=== PATIENT | female | born 1970 | race Caucasian/White ===

== ENCOUNTER → 2017-05-12 | Outpatient (CLI) | payer OTHER | LOC: FIMAGING 07:55 | PROVIDERS: ATTEND Obstetrics & Gynecology | DX: Z12.31 Encounter for screening mammogram for malignant neoplasm of breast (principal); Z80.3 Family history of malignant neoplasm of breast | CPT/HCPCS: G0202 ==

== ENCOUNTER 2017-11-06 08:11 | Inpatient (IN) | payer OTHER ==
[2017-11-06] MEDS ORDERED: NS 1,000 ML IV ONE (08:33)
--- NOTE | 2017-11-06 08:36 | EDPHY ---
H & P Stated Complaint: Left hand swelling Time Seen by Provider: 11/06/17 08:30 HPI/ROS: CHIEF COMPLAINT: Swelling and erythema dorsum left hand HISTORY OF PRESENT ILLNESS: The patient presents to the ED with swelling and erythema to the dorsum of her left hand. She was bit by her cat at home 2 days ago and began Augmentin immediately following the bite. She has been taking 875 mg twice daily. She presents to the ED today with increasing pain, swelling erythema to the dorsum of her left hand. The patient reports some mild paresthesias secondary to the swelling. She denies any additional arthralgias. She has mild to moderate pain worsened with movement. She denies any pain along the flexor surface of her hand. REVIEW OF SYSTEMS: A comprehensive 10 point review of systems is otherwise negative aside from elements mentioned in the history of present illness. Source: Patient Exam Limitations: No limitations - Personal History LMP (Females 10-55): 15-21 Days Ago Current Tetanus/Diphtheria Vaccine: Yes Current Tetanus Diphtheria and Acellular Pertussis (TDAP): Yes - Medical/Surgical History Hx Asthma: No Hx Chronic Respiratory Disease: No Hx Diabetes: No Hx Cardiac Disease: No Hx Renal Disease: No Hx Cirrhosis: No Hx Alcoholism: No Hx HIV/AIDS: No Hx Splenectomy or Spleen Trauma: No Other PMH: PMH: denies - Social History Smoking Status: Never smoked - Physical Exam Exam: General Appearance: Alert, no distress Eyes: Pupils equal and round no pallor or injection ENT, Mouth: Mucous membranes moist Respiratory: There are no retractions, lungs are clear to auscultation Cardiovascular: Regular rate and rhythm Gastrointestinal: Abdomen is soft and nontender, no masses, bowel sounds normal Neurological: 5/5 strength noted throughout the bilateral upper extremities, sensation intact to light touch Skin: Erythema soft tissue swelling noted along the dorsum of the left hand Musculoskeletal: Tenderness along the dorsal aspect of the left hand and wrist , no significant joint effusion appreciated Extremities: Patient does have nonpainful range of motion noted in the left fingers and wrist Constitutional: Initial Vital Signs Temperature (C) 36.6 C 11/06/17 08:17 Heart Rate 81 11/06/17 08:17 Respiratory Rate 18 11/06/17 08:17 Blood Pressure 115/60 11/06/17 08:17 O2 Sat (%) 100 11/06/17 08:17 O2 Delivery Mode Room Air Allergies/Adverse Reactions: No Known Allergies Allergy (Unverified 11/06/17 08:20) Home Medications: Medication Instructions Recorded Amoxicillin/Clavulanate Pot 875 mg PO BID 11/06/17 [Augmentin 875 MG TAB (*)] Multivitamins [Multivitamin (*)] 1 each PO DAILY 11/06/17 Medical Decision Making - Diagnostics Imaging Results: Imaging Impressions Extremity Ultrasound 11/06/17 08:38 Impression: Mild dorsal soft tissue swelling with fluid in the dorsal extensor tendon sheath, consistent with an inflammatory/infectious tenosynovitis. Contrast-enhanced MR imaging could be considered for additional assessment. Findings and suggestions were discussed with Christ Sutton MD at 9:23, on 11/06/2017. Procedures: Procedure: Splint placement. A ortho glass volar splint was applied to the left upper extremity by the tech. After application of the splint I returned and re-examined the patient. The splint was adequately immobilizing the joint and distal to the splint the patient's circulation and sensation was intact. ED Course/Re-evaluation: The patient presents to the ED with a cellulitis to the dorsum of her left hand. An ultrasound was obtained which demonstrates no drainable abscess. The patient does have some mild fluid around her extensor tendons. The patient had blood cultures x2 obtained. She received 1 g of IV Invanz. Consultation is made with Dr. Escobar, the on-call hand surgeon, who will evaluate the patient for progressive abscess or need for surgical drainage. I did curbside the Infectious Disease service at 10:00 a.m.. They will see the patient in consultation. I spoke with Dr. Fatuma French. The patient will be admitted to Hospital Medicine. The patient will be admitted by Dr. Jean Salinas. I re-evaluated the patient at 10:30 a.m.: She will be placed in a ortho glass splint. Differential Diagnosis: Differential diagnosis considered includes cellulitis, abscess, necrotizing fasciitis, flexor tenosynovitis - Data Points Laboratory Results: Laboratory Results 11/06/17 08:40 11/06/17 08:40 11/06/17 11/06/17 08:40 08:40 WBC 7.74 10^3/uL 10^3/uL (3.80-9.50) RBC 4.35 10^6/uL 10^6/uL (4.18-5.33) Hgb 12.4 g/dL L g/dL (12.6-16.3) Hct 38.0 % % (38.0-47.0) MCV 87.4 fL fL (81.5-99.8) MCH 28.5 pg pg (27.9-34.1) MCHC 32.6 g/dL g/dL (32.4-36.7) RDW 14.6 % % (11.5-15.2) Plt Count 214 10^3/uL 10^3/uL (150-400) MPV 10.2 fL fL (8.7-11.7) Neut % (Auto) 73.0 % % (39.3-74.2) Lymph % (Auto) 16.9 % % (15.0-45.0) Bledsoe % (Auto) 7.9 % % (4.5-13.0) Eos % (Auto) 0.9 % % (0.6-7.6) Baso % (Auto) 0.8 % % (0.3-1.7) Nucleat RBC Rel Count 0.0 % % (0.0-0.2) Absolute Neuts (auto) 5.65 10^3/uL 10^3/uL (1.70-6.50) Absolute Lymphs (auto) 1.31 10^3/uL 10^3/uL (1.00-3.00) Absolute Monos (auto) 0.61 10^3/uL 10^3/uL (0.30-0.80) Absolute Eos (auto) 0.07 10^3/uL 10^3/uL (0.03-0.40) Absolute Basos (auto) 0.06 10^3/uL 10^3/uL (0.02-0.10) Absolute Nucleated RBC 0.00 10^3/uL 10^3/uL (0-0.01) Immature Gran % 0.5 % % (0.0-1.1) Immature Gran # 0.04 10^3/uL 10^3/uL (0.00-0.10) ESR 9 MM/HR MM/HR (0-20) Sodium 142 mEq/L mEq/L (134-144) Potassium 3.9 mEq/L mEq/L (3.5-5.2) Chloride 105 mEq/L mEq/L (97-110) Carbon Dioxide 22 mEq/l mEq/l (22-31) Anion Gap 15 mEq/L mEq/L (8-16) BUN 13 mg/dL mg/dL (7-23) Creatinine 0.7 mg/dL mg/dL (0.6-1.0) Estimated GFR > 60 Glucose 65 mg/dL L mg/dL (70-100) Calcium 9.6 mg/dL mg/dL (8.5-10.4) C-Reactive Protein 37.3 mg/L H mg/L (<10.0) Medications Given: Discontinued Medications Ertapenem (Invanz) 1 gm IVP EDNOW ONE PRN Reason: Protocol Stop: 11/06/17 09:10 Last Admin: 11/06/17 09:23 Dose: 1 gm Sodium Chloride (Ns) 1,000 mls @ 0 mls/hr IV ONCE ONE; Wide Open PRN Reason: Protocol Stop: 11/06/17 08:34 Last Admin: 11/06/17 09:03 Dose: 1,000 mls Departure - Departure Disposition: [facility] Inpatient Acute Clinical Impression: Cellulitis of left hand Cat bite Qualifiers: Encounter type: initial encounter Qualified Code(s): W55.01XA - Bitten by cat, initial encounter Condition: Good Referrals: Diego Delacruz MD [Primary Care Provider] - As per Instructions
[2017-11-06 08:55] LABS: PLATELET COUNT 214 10^3/uL (150-400)
[2017-11-06] MEDS ORDERED: ERTAPENEM 1 GM VIAL IVP ONE (09:09)
[2017-11-06] MEDS ORDERED: ONDANSETRON 4 MG/2 ML VIAL IVP PRN (11:23)
[2017-11-06] MEDS ORDERED: oxyCODONE IR 5 MG TAB PO PRN (11:23)
[2017-11-06] MEDS ORDERED: ONDANSETRON DISINTEGRATING 4 MG TAB PO PRN (11:23)
[2017-11-06 11:48] VITALS: BP 110/59; PULSE 71; RESP 18; TEMP 98.4; O2SAT 99
--- NOTE | 2017-11-06 12:01 | GHP ---
[f rep st] HISTORY AND PHYSICAL DATE OF ADMISSION: 11/06/2017 HISTORY OF PRESENT ILLNESS: The patient is a 47-year-old female with good health and no significant past medical history, who was bitten by a cat 2 days ago at 10 a.m. At 7 p.m. that evening she start ed Augmentin and she had been doing well, but this morning she woke up with increased pain, redness, and swelling in the side of her hand and the dorsum of her wrist. She has had pain with extension of her fingers, not flexion. She has not noticed crepitus. She has not had nausea, vomiting, fever, c hills, cough, shortness of breath. She denies left armpit pain nor does she have lymphangitic streak ing up her arm. She does not use IV drugs. REVIEW OF SYSTEMS: Complete 10-point review of systems conducted and negative except as in the HPI. PAST MEDICAL HISTORY: None. ALLERGIES: None. HOME MEDICATIONS: Augmentin, Benadryl h.s., multivitamin, and ibuprofen. SOCIAL HISTORY: No tobacco. She has a couple glasses of wine most days. No IV drug use. FAMILY HISTORY: Notable for breast cancer or lymphoma. PHYSICAL EXAMINATION: VITAL SIGNS: Temp 36.6, blood pressure 118/60, pulse 81, breathing 18 times a minute, 100% in room air. GENERAL: No acute distress. HEENT: Sclerae anicteric. Oropharynx ching r. Mucous membranes moist. NECK: Supple without lymphadenopathy or JVD. LUNGS: Clear to ausculta tion bilaterally. HEART: S1, S2. ABDOMEN: Soft, nontender, nondistended. LOWER EXTREMITIES: Wit hout edema. Left upper extremity is bandaged. She has erythema and warmth and some soft-tissue swel ling over her carpal bones. She has some pain with extension in the area of the redness but not in h er upper arm. There is no axillary lymphadenopathy. LABORATORY DATA: Chem 7 normal other than a glucose of 65. Her CRP is high at 37.3. White count 7. 7, hematocrit 38, platelets are 214,000. Extremity ultrasound shows mild soft-tissue swelling within the fluid in the dorsal extensor tendon s марина, consistent with mild infectious tenosynovitis. I have discussed the case with Dr. Aniket Sutton. ASSESSMENT/PLAN: A 47-year-old female with a cat bite and extensor tenosynovitis. 1. Extensors tenosynovitis: She has a hand surgery evaluation pending. Dr. Escobar will see her and will follow up on that evaluation. 2. Cat bite: Has failed Augmentin. She has been started on ertapenem, and I will continue this. 3. Hyperglycemia: This is mild. By fasting sample, she is nondiabetic. 4. Pain: I have written for some scheduled Tylenol, p.r.n., oxycodone, as well as some ibuprofen. 5. Prophylaxis: Pharmacologic prophylaxis indicated if in the hospital longer than 24 hours, which she may well be. For now, I have started sequential compression devices. DISPOSITION: Inpatient status. /[id number]/MODL
[2017-11-06] MEDS ORDERED: ACETAMINOPHEN 325 MG TAB PO SCH (14:00)
[2017-11-06] MEDS ORDERED: ACETAMINOPHEN 500 MG TAB PO SCH (14:00)
[2017-11-06] MEDS ORDERED: IBUPROFEN 200 MG TAB PO SCH (14:00)
--- NOTE | 2017-11-06 15:27 | PDMN ---
Medical Necessity Medical necessity: Patient meets INPT criteria per physician note and [facility] Cellulitis (failed O/P treatment of cat bite: increasing pain/redness/swelling despite po Augmentin; likely extensor tenosynovitis; anticipated LOS > 2 midnights for ongoing IV antibiotics, pending hand surgery evaluation.)
--- NOTE | 2017-11-06 16:24 | ASMTCMCOM ---
CM Note CM Note Notes: Pt admitted for cellulitis and will DC today. She will need IV ertapenem 1GM through 11/10. Pt chose [facility]. She has a daily appt with them for 8:30. Gave pt check in info. Date Signed: 11/06/2017 04:24 PM Electronically Signed By:Marlene Maher LCSW
--- NOTE | 2017-11-06 16:37 | HOSPPROG ---
Hospitalist Progress Note Assessment/Plan: ID has set up outpt IV abx see dc summary Objective: Vital Signs Temp Pulse Resp BP Pulse Ox 36.9 C 71 18 110/59 L 99 11/06/17 11:48 11/06/17 11:48 11/06/17 11:48 11/06/17 11:48 11/06/17 11:48 ICD10 Worksheet Patient Problems: Problems Problem Status Onset Cat bite Acute Cellulitis of left hand Acute
--- NOTE | 2017-11-06 17:03 | ASDISCHSUM ---
Discharge Information Plan Status: Medically Cleared to Leave: Discharge Date:11/06/2017 04:40 PM CM D/C Disposition: ADT D/C Disposition:Home, Routine, Self-Care Projected Discharge Date:11/06/2017 04:40 PM Transportation at D/C: Discharge Delay Reason: Follow-Up Date:11/06/2017 04:40 PM Discharge Slot: Final Diagnosis: Placement Information Patient Contact Information Contact Name:JOHN Relationship: Address:[address] [place] [address] [address] Work Phone: City:[place] Alternate Phone: State/Zip Code:[place] [address] Email: Financial Information Financial Class:ABS Primary Plan Desc:[employer] Primary Plan Number:[id number] Secondary Plan Desc: Secondary Plan Number: Assessment Information [facility] CM Progress Note CM Note CM Note Notes: Pt admitted for cellulitis and will DC today. She will need IV ertapenem 1GM through 11/10. Pt chose [facility]. She has a daily appt with them for 8:30. Gave pt check in info. Date Signed: 11/06/2017 04:24 PM Electronically Signed By:Marlene Maher LCSW Intervention Information
[2017-11-06] MEDS ORDERED: diphenhydrAMINE 25 MG CAP PO SCH (21:00)
--- NOTE | 2017-11-06 22:08 | GCON ---
[f rep st] CONSULTATION DATE OF CONSULTATION: 11/06/2017 REASON FOR CONSULTATION: Management of a cat bite with associated cellulitis and tendinitis. HISTORY OF PRESENT ILLNESS: A 47-year-old woman who is healthy, who is right- hand dominant, who on 11/04/2017 at 10:00 a.m. sustained a cat bite from her own vaccinated cat. She immediately washed the area out with chlorhexidine and started on Augmentin that evening at 7:00 p.m. The patient had increasing pain and erythema on the dorsum of her left hand and presented to the emergency department for further evaluation. The patient denied any associated systemic symptoms such as fevers, chills, or night sweats. She denies a history of MRSA and the last time that she took antibiotics was about 15 years ago. PAST MEDICAL HISTORY/SURGICAL HISTORY: Only positive for section. SOCIAL HISTORY: Occasional alcohol. She is . No tobacco. 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 They have 1 cat and 1 dog. VACCINATIONS: She reports her Tdap was 5 years ago. ALLERGIES: NKDA. MEDICATIONS: No chronic medicines other than multivitamin. She was on Augmentin 875 twice daily on admission and was given a dose of ertapenem 1 g intravenously daily. REVIEW OF SYSTEMS: A complete 10-point review of systems was performed and is negative except as mentioned in HPI. PHYSICAL EXAMINATION: VITAL SIGNS: Blood pressure 110/58, heart rate 71, respiratory rate 18, saturation 99% on room air, temperature 36.9. GENERAL: This is a well-appearing woman, sitting up in bed in no acute distress. HEENT: Unremarkable neck was supple. CARDIOVASCULAR: Regular rate and rhythm. No murmur. CHEST: Clear to auscultation bilaterally. EXTREMITIES: Her left hand demonstrated erythema over the dorsum of her hand and adjacent beginning of her wrist with an obvious puncture wound at the back part of her hand. No purulence is expressed from that area. No fluctuance was noted. The patient tolerated very fairly aggressive palpation of this area with only moderate tenderness. The pain was not out of proportion to exam. The patient did have range of motion of her wrist intact, but had significant pain with flexion of the wrist. Her range of motion of her fingers were intact. There was no crepitus. There was associated warmth. No focal joint swelling. NEUROLOGIC: She was alert and oriented x4. PULSES: She had normal pulses including a left radial pulse intact. LABORATORY DATA: White count 7.7, hematocrit 38, platelets of 214, 73% neutrophils, 16% lymphocytes. ESR 9. CRP 37. Creatinine 0.7. Blood cultures were collected in the emergency department and are pending. IMAGING STUDIES: She had an ultrasound performed in the emergency department that showed mild dorsal soft tissue swelling with fluid in the dorsal tendon sheath consistent with inflammatory infectious tenosynovitis. ASSESSMENT AND PLAN: 47-year-old woman status post cat bite 2-1/2 days ago, who had progressive swelling and erythema and pain while on Augmentin. I still suspect primary pathogens to include pasteurella, streptococcus, and anaerobes. Pertinent pathogens are a combination from the oral romina of the cat, as well as the skin colonization. Suspect not a failure of spectrum of activity of Augmentin, but just needs higher antibiotic concentrations due to evidence of tenosynovitis and possible need for surgical intervention. Because the patient is hemodynamically stable with normal laboratories, the patient desires outpatient therapy/monitoring. Reviewed the potential reasons for hospitalization which include closer monitoring of exam, potential easier surgical intervention if needed if became progressive. The patient understands these risks, but still desires outpatient intravenous therapy. We will set up intravenous antibiotics through the infusion center; ertapenem once daily through the with reevaluation at that time. We will continue to follow blood cultures. Time 55 minutes with greater than 50% time spent with education and counseling regarding IV antibiotics potential need for surgical intervention and side effects relating to antibiotic therapy including the risk of Clostridium difficile. Education regarding the importance of elevation of the hand above the heart. Thank you for this consultation. We will arrange for followup as an outpatient. /[id number]/MODL MTDD
--- NOTE | 2017-11-07 04:49 | GDS ---
[f rep st] DISCHARGE SUMMARY DISCHARGE DIAGNOSES: Cat bite with infection and tenosynovitis. CONSULTATIONS: ID and Hand Surgery. HISTORY OF PRESENT ILLNESS: Patient was admitted with a cat bite. She immediately started taking Au gmentin, but progressed to infection with some pain with extension of her fingers. She had an ultras ound showing extensor tenosynovitis. She was noted to have pain in her upper arm. She was noted to have lymphadenitis. She was noted to have sepsis. She was seen by hand surgery who felt interventio n was not necessary. She was started on ertapenem, ID saw her and will establish outpatient antibiot ic care. She is discharged home. /[id number]/MODL
[2017-11-07] MEDS ORDERED: MULTIVITAMINS 1 EACH TAB PO SCH (09:00)
[2017-11-07] MEDS ORDERED: ERTAPENEM 1 GM VIAL IVP SCH (09:00)
--- NOTE | 2017-11-10 14:04 | PQFORM ---
PHYSICIAN QUERY FORM Needs Your Response This query form is being sent to you to assure this patient record is coded properly. Please respond to the question below: DIRECTOR OF ENGINEERING QUESTION: Dr. Salinas, On your discharge summary, you state 'she was noted to have sepsis'. There is no further documentation of the signs and symptoms of sepsis for this patient. Is it your clinical opinion that this patient had: Sepsis, present on admission Sepsis, not present on admission ___x___ Meant to say 'she was not noted to have sepsis' Other Thank you for clarifying, MARY Miller HIM Coding INSTRUCTIONS FOR RESPONSE: Answer question by clicking on the "Edit Document" button. Move cursor to area below the stars. When complete, hit "Save." Click on the "Sign" button, then click "Sign" again. Type in your PIN and hit "Enter." MTDD
== END 2017-11-06 16:40 | disposition home or self-care (01) | DRG 603 ==
LOC: F1N 11:31
PROVIDERS: ADMIT Internal Medicine; ATTEND Internal Medicine
DX: L03.114 Cellulitis of left upper limb (principal); M65.142 Other infective (teno)synovitis, left hand
CPT/HCPCS: 96374; J1335

== ENCOUNTER 2017-11-10 13:03 | Day surgery (SDC) | payer OTHER ==
[2017-11-10 13:36] VITALS: PULSE 59
[2017-11-10] MEDS ORDERED: LR 1,000 ML IV ONE (13:39)
--- NOTE | 2017-11-10 15:10 | GHP ---
[f rep st] PREOP HISTORY AND PHYSICAL DATE OF ADMISSION: 11/10/2017 CHIEF COMPLAINT: Infection, left dorsal wrist. 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 She did take Augmentin but failed to get a response to that. She was then admitted on the 06 of November for IV antibiotics and began to see some fairly rapid improvement. She was seen by me at that time and did not appear to be a surgical candidate. She continued taking IV ertapenem and an outpatient basis but after her initial improvement started to worsen in the past 12-24 hours. PAST MEDICAL HISTORY: Generally unremarkable. She is a healthy nonsmoker. She has had a section in the past. She had a kidney infection in 1998. MEDICATIONS: Ertapenem IV daily and multivitamins and supplements. PHYSICAL EXAMINATION: GENERAL: She is a pleasant, healthy-looking 47-year-old female. VITAL SIGNS: Afebrile. Vitals stable. CARDIOVASCULAR: Heart sounds normal. RESPIRATORY: She has good air entry. EXTREMITIES: Examination of the involved extremity shows swelling over the dorsum of the left wrist area with a small puncture wound still present. She has reasonably good movement of her fingers but limited wrist flexion and extension due to pain and swelling in the dorsum. There is no axial compression tenderness of the wrist joint. The swelling does appear to be all dorsally within the extensor tendon area. IMPRESSION: Dorsal hand infection, appears to be not completely responding to antibiotics. PLAN: Irrigation and drainage. /[id number]/MODL MTDD
[2017-11-10] MEDS ORDERED: BUPIVACAINE 0.5% 30 ML SDV ONE (15:14)
[2017-11-10] MEDS ORDERED: MIDAZOLAM 2 MG/2 ML VIAL ONE (15:27)
[2017-11-10] MEDS ORDERED: MIDAZOLAM 2 MG/2 ML VIAL IVP ONE (15:32)
--- NOTE | 2017-11-10 15:33 | PDANEPAE ---
ANE History of Present Illness I&D L hand s/p cat bite ANE Past Medical History - Pulmonary History Hx Oxygen in Use at Home: No Hx Sleep Apnea: Yes Sleep Apnea Screening Result - Last Documented: Negative - Endocrine History Hx Diabetes: No - Chronic Pain History Chronic Pain: No ANE Review of Systems Review of Systems: - Exercise capacity Exercise capacity: >=4 METS ANE Patient History - Allergies Allergies/Adverse Reactions: No Known Allergies Allergy (Unverified 11/06/17 08:20) - Home Medications Home medications: home medication list seen and reviewed Home Medications: Ibuprofen [Motrin (*)] 600 mg PO TID 11/06/17 [Last Taken 11/09/17 21:00] Multivitamins [Multivitamin (*)] 1 each PO DAILY 11/06/17 [Last Taken 11/10/17] diphenhydrAMINE [Benadryl 25 MG (*)] 25 mg PO HS 11/06/17 [Last Taken 11/09/17] - NPO status NPO Status: no food or drink >8 hours NPO Since - Liquids (Date): 11/10/17 NPO Since - Liquids (Time): 07:00 NPO Since - Solids (Date): 11/10/17 NPO Since - Solids (Time): 07:00 - Anes Hx Anes Hx: no prior problems - Smoking Hx Smoking Status: Never smoked - Alcohol Use Alcohol Use: Rarely ANE Labs/Vital Signs - Vital Signs Blood Pressure: 103/67 Heart Rate: 59 Respiratory Rate: 14 O2 Sat (%): 97 Height: 175.26 cm Weight: 71.214 kg ANE Physical Exam - Airway Mallampati Score: Class 1 Mouth exam: normal dental/mouth exam - Pulmonary Pulmonary: no respiratory distress - Cardiovascular Cardiovascular: regular rate and rhythym - ASA Status ASA Status: I ANE Anesthesia Plan Anesthesia Plan: GA w LMA
[2017-11-10] MEDS ORDERED: POLYMYXIN B SULFATE 500,000 UNIT/10 ML SYR IRR ONE (16:02)
[2017-11-10] MEDS ORDERED: BACITRACIN 50,000 UNITS/10 ML SYR IRR ONE (16:02)
[2017-11-10] MEDS ORDERED: DEXAMETHASONE 4 MG/ML VIAL IVP PRN (16:25)
[2017-11-10] MEDS ORDERED: ACETAMINOPHEN 500 MG TAB PO PRN (16:25)
[2017-11-10] MEDS ORDERED: MEPERIDINE 25 MG/ML SYR IVP PRN (16:25)
[2017-11-10] MEDS ORDERED: OXYCODONE/APAP 5/325 TAB PO PRN (16:25)
[2017-11-10] MEDS ORDERED: fentaNYL 100 MCG/2 ML INJ IVP PRN (16:25)
[2017-11-10] MEDS ORDERED: ALBUTEROL 3 ML DEYVIAL IH PRN (16:25)
[2017-11-10] MEDS ORDERED: PHENYLEPHRINE HCL 100 MCG/ML SYR IVP PRN (16:25)
[2017-11-10] MEDS ORDERED: METOCLOPRAMIDE 10 MG/2 ML VIAL IVP PRN (16:25)
[2017-11-10] MEDS ORDERED: NALOXONE HCL 0.4 MG/ML INJ IVP PRN (16:25)
[2017-11-10] MEDS ORDERED: LABETALOL HCL 5 MG/ML 20 ML MDV IVP PRN (16:25)
[2017-11-10] MEDS ORDERED: PROMETHAZINE HCL 25 MG/ML INJ IVP PRN (16:25)
[2017-11-10] MEDS ORDERED: ONDANSETRON 4 MG/2 ML VIAL IVP PRN (16:25)
[2017-11-10] MEDS ORDERED: HYDROCODONE/APAP 5/325 TAB PO PRN (16:25)
[2017-11-10] MEDS ORDERED: LR 500 ML IV PRN (16:25)
--- NOTE | 2017-11-10 16:58 | POSTOPPROG ---
Post Op Note Date of Operation: 11/10/17 Surgeon: Jean Escobar Anesthesiologist: Amish Tovar Anesthesia: LMA Pre-op Diagnosis: Infection Left Hand Post-op Diagnosis: Same Procedure: Debridement and Irrigation Left Dorsal Hand Infection Inf/Abcess present in the surg proc area at time of surgery?: Yes Depth: Deep Incisional (Fascial) EBL: Minimal
[2017-11-10] MEDS ORDERED: OXYCODONE/APAP 5/325 TAB ONE (17:04)
[2017-11-10 17:11] VITALS: TEMP 98.6
[2017-11-10 17:34] VITALS: RESP 16
[2017-11-10 19:27] VITALS: BP 121/80; O2SAT 95
--- NOTE | 2017-11-10 20:02 | GOP ---
[f rep st] OPERATIVE REPORT DATE OF OPERATION: 11/10/2017 SURGEON: Jean Escobar MD PREOPERATIVE DIAGNOSIS: Infection left dorsal hand and wrist. POSTOPERATIVE DIAGNOSIS: Infection left dorsal hand and wrist. PROCEDURE PERFORMED: Exploration, debridement and irrigation of left dorsal hand and wrist. FINDINGS: DESCRIPTION OF PROCEDURE: Patient lying supine under general anesthesia. Left hand was elevated for 2 minutes and tourniquet was inflated to 250 mmHg. Incision was made over the puncture laceration e xcising the laceration itself and continuing as an S shaped incision from just proximal to the metaca rpophalangeal joint in an S shaped fashion to just past the radiocarpal joint. Skin flaps were raise d. The underlying extensor tendons were boggy and swollen underneath the retinaculum and this was op ened up but without expressing any pus. There was adherent fibrinous synovial tissue all around the extensor communis as well as the digiti minimi and carpi ulnaris. These were gently debrided of all the fibrinous tissue. A small incision was made down through the capsule of the radiocarpal joint an d no purulent matter was encountered there. A jet pulse agent ticketing gate was then used to irrigate with 3 L of saline with bacitracin and polymyxin. This resulted in a much cleaners looking wound. The tourni quet was then deflated during the course of closure which was done with 4-0 Prolene. Dressings of Xe roform and gauze were applied followed by a fiberglass volar slab splint. The procedure was tolerate d well. Estimated blood loss 25 mL. /[id number]/MODL
--- NOTE | 2017-11-11 13:20 | POSTANESTH ---
Post Anesthetic Evaluation Cardiovascular Status: Normal, Stable Respiratory Status: Normal, Stable Level of Consciousness/Mental Status: Can Participate in Eval Pain Control: Adequate, Prn Tx Ordered Nausea/Vomiting Control: Adequate, Prn Tx Ordered Complications Possibly Related to Anesthesia: None Noted (seen 11/10/17 in the recovery room)
== END 2017-11-10 18:35 | disposition home or self-care (01) ==
LOC: FSGY 13:03
PROVIDERS: ATTEND Plastic Surgery
PROC: 0HBEXZZ Excision of Left Lower Arm Skin, External Approach (ICD-10-PCS; principal; 2017-11-10 15:00)
PROC: 0HBGXZZ Excision of Left Hand Skin, External Approach (ICD-10-PCS; principal; 2017-11-10 15:00)
DX: L08.9 Local infection of the skin and subcutaneous tissue, unspecified (principal)
CPT/HCPCS: J2250

== ENCOUNTER → 2017-11-13 | Day surgery (SDC) | payer OTHER | END | disposition home or self-care (01) | LOC: FIMAGING 07:46 | PROVIDERS: ATTEND Internal Medicine Infectious Disease | PROC: 02HV33Z Insertion of Infusion Device into Superior Vena Cava, Percutaneous Approach (ICD-10-PCS; principal; 2017-11-13) | DX: L03.114 Cellulitis of left upper limb (principal); W55.01XA Bitten by cat, initial encounter; M65.9 Synovitis and tenosynovitis, unspecified; Z79.2 Long term (current) use of antibiotics | CPT/HCPCS: 36569; 77001; C1751 ==

== ENCOUNTER → 2017-11-24 | Outpatient (CLI) | payer OTHER ==
[~2017-11-24] MED LIST: GADOBUTROL 10 ML VIAL IVP ONE
== END ==
LOC: FIMAGING 16:14
PROVIDERS: ATTEND Internal Medicine Infectious Disease
DX: L03.114 Cellulitis of left upper limb (principal); M65.842 Other synovitis and tenosynovitis, left hand
CPT/HCPCS: A9585

== ENCOUNTER 2017-11-25 14:12 | Day surgery (SDC) | payer OTHER ==
--- NOTE | 2017-11-25 09:42 | GHP ---
[f rep st] PREOP HISTORY AND PHYSICAL CHIEF COMPLAINT: Ongoing inflammation, possible infection left dorsal hand. 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 She had incision and drainage, which was performed on 11/10. There was some chronic inflammation in there and the specimen grew strep salivarius. She was on antibiotics at the time. Since then, she has had slower than expected resolution of the swelling and pain in the dorsum of her hand. MRI scan yesterday shows ongoing inflammation in the dorsum of the hand without any evidence of bony or joint involvement underlying. Plan is to have a second look and once again wash out the dorsum of the hand. Past medical history otherwise unremarkable. She had a section and she , at one point, had a kidney infection in 1998. MEDICATIONS CURRENTLY: Ertapenem IV daily and some supplements that she takes. PHYSICAL EXAMINATION: GENERAL: Healthy-looking 47-year-old female. CARDIOVASCULAR: Heart sounds are normal. RESPIRATORY: Chest is clear with good air entry. EXTREMITIES: Previous surgical incision and ongoing moderate swelling and mild erythema on the dorsum of the left hand. IMPRESSION: Fit for procedure. PLAN: Exploration, irrigation and drainage, dorsum left hand. /[id number]/MODL MTDD
[2017-11-25] MEDS ORDERED: BUPIVACAINE 0.5% 30 ML SDV ONE (14:58)
[2017-11-25] MEDS ORDERED: BACITRACIN ZINC 14.2 GM OINTTUBE TP ONE (14:58)
[2017-11-25] MEDS ORDERED: LIDOCAINE 1% 300 MG/30 ML SDV ONE (14:58)
[2017-11-25] MEDS ORDERED: MIDAZOLAM 2 MG/2 ML VIAL IVP ONE (15:00)
--- NOTE | 2017-11-25 15:00 | PDANEPAE ---
ANE History of Present Illness L hand I&D ANE Past Medical History - Pulmonary History Hx Oxygen in Use at Home: No Hx Sleep Apnea: Yes - Endocrine History Hx Diabetes: No - Chronic Pain History Chronic Pain: No ANE Review of Systems Review of systems is: negative Review of Systems: - Exercise capacity Exercise capacity: >=4 METS ANE Patient History - Allergies Allergies/Adverse Reactions: No Known Allergies Allergy (Unverified 11/06/17 08:20) - Home Medications Home medications: home medication list seen and reviewed Home Medications: Ibuprofen [Motrin (*)] 600 mg PO TID 11/06/17 [Last Taken 11/09/17 21:00] Multivitamins [Multivitamin (*)] 1 each PO DAILY 11/06/17 [Last Taken 11/10/17] diphenhydrAMINE HCL [Benadryl] 11/25/17 [Last Taken 11/24/17 21:00] - NPO status NPO Status: no food or drink >8 hours - Anes Hx Anes Hx: no prior problems - Smoking Hx Smoking Status: Never smoked - Family Anes Hx Family Anes Hx: none ANE Physical Exam - Airway Neck exam: FROM Mallampati Score: Class 1 Mouth exam: normal dental/mouth exam - Pulmonary Pulmonary: no respiratory distress - Cardiovascular Cardiovascular: regular rate and rhythym - ASA Status ASA Status: I ANE Anesthesia Plan Anesthesia Plan: GA w LMA
[2017-11-25 15:03] VITALS: PULSE 71
[2017-11-25] MEDS ORDERED: LR 1,000 ML IV ONE (15:16)
[2017-11-25] MEDS ORDERED: fentaNYL 100 MCG/2 ML INJ ONE (15:40)
[2017-11-25] MEDS ORDERED: ONDANSETRON 4 MG/2 ML VIAL ONE (15:40)
[2017-11-25] MEDS ORDERED: DEXAMETHASONE 4 MG/ML VIAL ONE (15:40)
[2017-11-25] MEDS ORDERED: PROPOFOL 200 MG/20 ML VIAL ONE (15:40)
[2017-11-25] MEDS ORDERED: LIDOCAINE 2% 100 MG/5 ML SYR ONE (15:40)
[2017-11-25] MEDS ORDERED: BACITRACIN 50,000 UNITS/10 ML SYR IRR ONE (16:20)
[2017-11-25] MEDS ORDERED: POLYMYXIN B SULFATE 500,000 UNIT/10 ML SYR IRR ONE (16:20)
[2017-11-25] MEDS ORDERED: NALOXONE HCL 0.4 MG/ML INJ IVP PRN (16:53)
[2017-11-25] MEDS ORDERED: HYDROCODONE/APAP 5/325 TAB PO PRN (16:53)
[2017-11-25] MEDS ORDERED: PROMETHAZINE HCL 25 MG/ML INJ IVP PRN (16:53)
[2017-11-25] MEDS ORDERED: ACETAMINOPHEN 500 MG TAB PO PRN (16:53)
[2017-11-25] MEDS ORDERED: MEPERIDINE 25 MG/ML SYR IVP PRN (16:53)
[2017-11-25] MEDS ORDERED: ONDANSETRON 4 MG/2 ML VIAL IVP PRN (16:53)
[2017-11-25] MEDS ORDERED: DEXAMETHASONE 4 MG/ML VIAL IVP PRN (16:53)
[2017-11-25] MEDS ORDERED: OXYCODONE/APAP 5/325 TAB PO PRN (16:53)
[2017-11-25] MEDS ORDERED: HYDROmorphONE/DILAUDID 1 MG/ML INJ IVP PRN (16:53)
[2017-11-25] MEDS ORDERED: fentaNYL 100 MCG/2 ML INJ IVP PRN (16:53)
--- NOTE | 2017-11-25 16:54 | POSTANESTH ---
Post Anesthetic Evaluation Cardiovascular Status: Normal, Stable, Similar to Pre-Op Cond Respiratory Status: Normal, Stable, Similar to Pre-op Cond. Level of Consciousness/Mental Status: Can Participate in Eval, Moderately Sleepy Pain Control: Adequate, Prn Tx Ordered Nausea/Vomiting Control: Adequate, Prn Tx Ordered Complications Possibly Related to Anesthesia: None Noted
--- NOTE | 2017-11-25 17:10 | POSTOPPROG ---
Post Op Note Date of Operation: 11/25/17 Surgeon: Jean Escobar Anesthesiologist: Adenike Anesthesia: LMA Pre-op Diagnosis: Infection left hand Post-op Diagnosis: same Procedure: Incision and drainage left hand Inf/Abcess present in the surg proc area at time of surgery?: Yes Depth: Deep Incisional (Fascial) EBL: Minimal
[2017-11-25 17:38] VITALS: RESP 16
[2017-11-25 17:59] VITALS: BP 107/56; TEMP 98.6; O2SAT 98
--- NOTE | 2017-11-26 05:31 | GOP ---
[f rep st] OPERATIVE REPORT DATE OF OPERATION: 11/25/2017 SURGEON: Jean Escobar MD PREOPERATIVE DIAGNOSIS: Infection left dorsal hand. POSTOPERATIVE DIAGNOSIS: Infection left dorsal hand. PROCEDURE PERFORMED: Exploration, debridement and irrigation of dorsum of left hand. FINDINGS: ESTIMATED BLOOD LOSS: 20 mL. DESCRIPTION OF PROCEDURE: With patient lying supine under general anesthesia, left hand and forearm were prepped and draped in the usual fashion. Marcaine was introduced into the surgical site prior to opening up the preexisting laceration with blunt spreading scissor dissection. The skin and underlying tissue were raised and the extensor tendons were exposed. The tendons were noted to have some inflammation and adherent fibrotic tissue around them consistent with some inflammation and a healing wound, but no purulent matter. Some of the adherent boggy synovium was sampled and sent for Gram stain and culture. Distally, toward the metacarpophalangeal joints, the incision was extended slightly over the 4th and 5th metacarpal heads where patient had been describing some pain and where some swelling and inflammation was present. The tendons in this area appeared a little bit boggy and inflamed, but again no purulent matter. Small incisions were taken down to the joint capsule of the metacarpophalangeal joints on both sides and these were both grossly normal. Irrigation of the entire open area was then carried out with 3 L of saline with bacitracin and polymyxin. Closure was then carried out with a combination of running and interrupted horizontal mattress and simple sutures. A dressing of Xeroform and gauze was applied, followed by a fiberglass splint. Procedure was tolerated well. /[id number]/MODL MTDD
== END 2017-11-25 18:07 | disposition home or self-care (01) ==
LOC: FSGY 14:12
PROVIDERS: ATTEND Plastic Surgery
PROC: 0JDK0ZZ Extraction of Left Hand Subcutaneous Tissue and Fascia, Open Approach (ICD-10-PCS; principal; 2017-11-25 15:30)
DX: L03.114 Cellulitis of left upper limb (principal); M65.142 Other infective (teno)synovitis, left hand; W55.01XD Bitten by cat, subsequent encounter; Y99.0 Civilian activity done for income or pay
CPT/HCPCS: J0171; J1100; J1642; J2001; J2250; J2405; J2704; J3010

== ENCOUNTER → 2018-05-20 | Outpatient (CLI) | payer OTHER | LOC: FIMAGING 10:21 | PROVIDERS: ATTEND Internal Medicine | DX: Z12.31 Encounter for screening mammogram for malignant neoplasm of breast (principal); Z80.3 Family history of malignant neoplasm of breast ==

== ENCOUNTER 2018-12-06 12:26 | Inpatient (IN) | payer OTHER ==
[2018-12-06] MEDS ORDERED: NS 1,000 ML IV ONE ×2 (13:22→13:30)
[2018-12-06] MEDS ORDERED: KETOROLAC 30 MG/1 ML SDV IVP ONE ×2 (13:31→19:00)
--- NOTE | 2018-12-06 13:34 | EDPHY ---
H & P Stated Complaint: FEVER/DYSURIA/BACK PAIN SHOULDER/NECK PAIN/PAZ Time Seen by Provider: 12/06/18 13:15 HPI/ROS: CHIEF COMPLAINT: Headache, neck pain and back pain HISTORY OF PRESENT ILLNESS: The patient is referred to the emergency department by her primary care provider for evaluation of a 2 day history of headache, neck pain and back pain. The patient also has been having some urinary burning. She did treat herself with [id number] medications for yeast infection within the past week. The patient reports moderate pain in her back. The patient denies any acute numbness or weakness. She has remote history of a hand infection which was treated successfully with antibiotics and debridement. The patient has not been on any recent oral antibiotics. She denies any travel outside the [place]. REVIEW OF SYSTEMS: A comprehensive 10 point review of systems is otherwise negative aside from elements mentioned in the history of present illness. Source: Patient - Personal History LMP (Females 10-55): 8-14 Days Ago Current Tetanus Diphtheria and Acellular Pertussis (TDAP): Yes - Medical/Surgical History Hx Asthma: No Hx Chronic Respiratory Disease: No Hx Diabetes: No Hx Cardiac Disease: No Hx Renal Disease: No Hx Cirrhosis: No Hx Alcoholism: No Hx HIV/AIDS: No Hx Splenectomy or Spleen Trauma: No Other PMH: , kidney infection 1999 - Social History Smoking Status: Never smoked - Physical Exam Exam: General Appearance: Alert, no distress Eyes: Pupils equal and round no pallor or injection ENT, Mouth: Mucous membranes moist Respiratory: There are no retractions, lungs are clear to auscultation Cardiovascular: Regular rate and rhythm Gastrointestinal: Abdomen is soft and nontender, no masses, bowel sounds normal Neurological: A&O, normal motor function, normal sensory exam, normal cranial nerves Skin: Warm and dry, no rashes Musculoskeletal: Patient is exhibiting meningeal symptoms with pain on forward flexion of her neck noted Extremities: symmetrical, full range of motion Constitutional: Initial Vital Signs Temperature (C) 37.5 C 12/06/18 12:30 Heart Rate 94 12/06/18 12:30 Respiratory Rate 17 12/06/18 12:30 Blood Pressure 131/76 H 12/06/18 12:30 O2 Sat (%) 98 12/06/18 12:30 O2 Delivery Mode Nasal Cannula O2 (L/minute) 1 Allergies/Adverse Reactions: No Known Allergies Allergy (Verified 12/06/18 12:30) Home Medications: Medication Instructions Recorded Ibuprofen [Motrin (*)] 600 mg PO TID 11/06/17 Multivitamins [Multivitamin (*)] 1 each PO DAILY 11/06/17 diphenhydrAMINE HCL [Benadryl] 11/25/17 Medical Decision Making - Diagnostics Imaging Results: Imaging Impressions Head CT 12/06/18 13:31 Impression: No evidence for acute intracranial abnormality. Mild generalized cerebral atrophy. Results called and discussed with Dr. Christ Sutton on 12/06/2018, 13:59. Procedures: Procedure: Lumbar puncture. Indication: headache After verbal informed consent from patient explaining the risks including infection, bleeding, and neurologic damage, a lumbar puncture was performed after the patient was prepped and draped in the usual fashion. The back was anesthetized with 1% lidocaine. Approximately 4 cc of clear fluid was obtained. Opening pressure was not obtained. There were no complications. The procedure was performed by myself. ED Course/Re-evaluation: Patient presents the ED for evaluation of fever, headache and neck stiffness. The patient is noted to be neurologically intact. Patient's symptoms have been present for the past 2 days. She has no rash but does have clinical signs findings consistent with meningitis. The patient did undergo a CT scan which demonstrated no evidence of a space-occupying lesion or an obvious abscess. Patient was verbally consented to undergo lumbar puncture which was performed by myself without complication at 2:30 p.m.. Patient was treated with IV Toradol and fentanyl in the emergency department. The patient has an indeterminate CSF with high protein and low glucose, but a reassuring gram stain and differential. Given the patient's abnormal protein and glucose she did received 2 g of ceftriaxone. I have ordered a stat MEP PCR test to be performed at [facility]. The patient will be admitted to the hospitalist service this evening. Consultation is made with Dr. Jean Salinas. Differential Diagnosis: Differential diagnosis considered includes intracranial hemorrhage, meningitis, influenza, sinusitis, pyelonephritis - Data Points Laboratory Results: Laboratory Results 12/06/18 13:15 12/06/18 13:15 12/06/18 12/06/18 12/06/18 14:35 14:35 13:45 WBC RBC Hgb Hct MCV MCH MCHC RDW Plt Count MPV Neut % (Auto) Lymph % (Auto) [place] % (Auto) Eos % (Auto) Baso % (Auto) Nucleat RBC Rel Count Absolute Neuts (auto) Absolute Lymphs (auto) Absolute Monos (auto) Absolute Eos (auto) Absolute Basos (auto) Absolute Nucleated RBC Immature Gran % Immature Gran # Sodium Potassium Chloride Carbon Dioxide Anion Gap BUN Creatinine Estimated GFR Glucose Calcium C-Reactive Protein Urine Color Urine Appearance Urine pH Ur Specific [place] Urine Protein Urine Ketones Urine Blood Urine Nitrate Urine Bilirubin Urine Urobilinogen Ur Leukocyte Esterase Urine RBC Urine WBC Ur Epithelial Cells Urine Bacteria Urine Mucus Urine Glucose Fl Pathologist Review Falguni BECKFORD MD CSF Tube Number 4 1 CSF Appearance CLEAR CLEAR (CLEAR) (CLEAR) CSF Color COLORLESS COLORLESS (COLORLESS) (COLORLESS) CSF Supernatant Not Reported Not Reported CSF WBC Pending 455 /mm3 H /mm3 (0-5) CSF RBC Pending 86 /mm3 H /mm3 (0-0) CSF Neutrophils % 1 % % (0-6) CSF Lymphocytes % 85 % % (0-100) CSF Monos/Macrophage % 14 % % (0-45) CSF Glucose 44 mg/dL L mg/dL (50-75) CSF Total Protein 156 mg/dL H mg/dL (12-60) Nasal Influenza A PCR NEGATIVE FOR FLU A (NEGATIVE) Nasal Influenza B PCR NEGATIVE FOR FLU B (NEGATIVE) 12/06/18 12/06/18 12/06/18 13:15 13:15 12:34 WBC 7.96 10^3/uL 10^3/uL (3.80-9.50) RBC 4.41 10^6/uL 10^6/uL (4.18-5.33) Hgb 12.0 g/dL L g/dL (12.6-16.3) Hct 37.7 % L % (38.0-47.0) MCV 85.5 fL fL (81.5-99.8) MCH 27.2 pg L pg (27.9-34.1) MCHC 31.8 g/dL L g/dL (32.4-36.7) RDW 15.0 % % (11.5-15.2) Plt Count 276 10^3/uL 10^3/uL (150-400) MPV 9.9 fL fL (8.7-11.7) Neut % (Auto) 72.8 % % (39.3-74.2) Lymph % (Auto) 18.2 % % (15.0-45.0) [place] % (Auto) 7.9 % % (4.5-13.0) Eos % (Auto) 0.1 % L % (0.6-7.6) Baso % (Auto) 0.6 % % (0.3-1.7) Nucleat RBC Rel Count 0.0 % % (0.0-0.2) Absolute Neuts (auto) 5.79 10^3/uL 10^3/uL (1.70-6.50) Absolute Lymphs (auto) 1.45 10^3/uL 10^3/uL (1.00-3.00) Absolute Monos (auto) 0.63 10^3/uL 10^3/uL (0.30-0.80) Absolute Eos (auto) 0.01 10^3/uL L 10^3/uL (0.03-0.40) Absolute Basos (auto) 0.05 10^3/uL 10^3/uL (0.02-0.10) Absolute Nucleated RBC 0.00 10^3/uL 10^3/uL (0-0.01) Immature Gran % 0.4 % % (0.0-1.1) Immature Gran # 0.03 10^3/uL 10^3/uL (0.00-0.10) Sodium 137 mEq/L mEq/L (135-145) Potassium 3.9 mEq/L mEq/L (3.5-5.2) Chloride 104 mEq/L mEq/L (97-110) Carbon Dioxide 25 mEq/l mEq/l (22-31) Anion Gap 8 mEq/L mEq/L (6-14) BUN 9 mg/dL mg/dL (7-23) Creatinine 0.7 mg/dL mg/dL (0.6-1.0) Estimated GFR > 60 Glucose 97 mg/dL mg/dL (70-100) Calcium 9.6 mg/dL mg/dL (8.5-10.4) C-Reactive Protein < 5.0 mg/L mg/L (<10.0) Urine Color YELLOW Urine Appearance CLEAR Urine pH 6.0 (5.0-7.5) Ur Specific [place] 1.011 (1.002-1.030) Urine Protein NEGATIVE (NEGATIVE) Urine Ketones 1+ H (NEGATIVE) Urine Blood 1+ H (NEGATIVE) Urine Nitrate NEGATIVE (NEGATIVE) Urine Bilirubin NEGATIVE (NEGATIVE) Urine Urobilinogen NEGATIVE EU EU (0.2-1.0) Ur Leukocyte Esterase NEGATIVE (NEGATIVE) Urine RBC 3-5 /hpf H /hpf (0-3) Urine WBC 1-3 /hpf /hpf (0-3) Ur Epithelial Cells 1+ /lpf /lpf (NONE-1+) Urine Bacteria 1+ /hpf H /hpf (NONE SEEN) Urine Mucus TRACE /lpf /lpf (NONE-1+) Urine Glucose NEGATIVE (NEGATIVE) Fl Pathologist Review CSF Tube Number CSF Appearance CSF Color CSF Supernatant CSF WBC CSF RBC CSF Neutrophils % CSF Lymphocytes % CSF Monos/Macrophage % CSF Glucose CSF Total Protein Nasal Influenza A PCR Nasal Influenza B PCR Microbiology Results: MICROBIOLOGY 12/06/18 14:35 Cerebral Spinal Fluid Gram Stain - Final Medications Given: Discontinued Medications Fentanyl (Sublimaze) 50 mcg IVP EDNOW ONE Stop: 12/06/18 14:14 Last Admin: 12/06/18 14:20 Dose: 50 mcg Sodium Chloride (Ns) 1,000 mls @ 0 mls/hr IV ONCE ONE PRN Reason: Wide Open Stop: 12/06/18 13:23 Last Admin: 12/06/18 13:24 Dose: 1,000 mls Sodium Chloride (Ns) 1,000 mls @ 0 mls/hr IV ONCE ONE; Wide Open PRN Reason: Protocol Stop: 12/06/18 13:31 Last Admin: 12/06/18 14:20 Dose: 1,000 mls Ketorolac Tromethamine (Toradol) 30 mg IVP EDNOW ONE Stop: 12/06/18 13:32 Last Admin: 12/06/18 14:20 Dose: 30 mg Departure - Departure Disposition: [facility] Acute Clinical Impression: Meningitis Condition: Good Referrals: Thelma Parker MD [Primary Care Provider] - As per Instructions
[2018-12-06 13:39] LABS: PLATELET COUNT 276 10^3/uL (150-400)
[2018-12-06] MEDS ORDERED: fentaNYL 100 MCG/2 ML INJ IVP ONE (14:13)
[2018-12-06] MEDS ORDERED: HYDROmorphONE/DILAUDID 1 MG/ML INJ IVP ONE (17:38)
[2018-12-06] MEDS ORDERED: PROMETHAZINE HCL 25 MG/ML INJ IVP PRN (17:54)
[2018-12-06] MEDS ORDERED: ONDANSETRON 4 MG/2 ML VIAL IVP PRN (17:54)
[2018-12-06] MEDS ORDERED: HYDROmorphONE/DILAUDID 1 MG/ML INJ IVP PRN (17:54)
[2018-12-06] MEDS ORDERED: ACETAMINOPHEN 325 MG TAB PO PRN (17:54)
[2018-12-06] MEDS ORDERED: NS 1,000 ML IV SCH (18:00)
[2018-12-06] MEDS ORDERED: cefTRIAXone 1 GM/DEXTROSE 1 GM/50 ML BAG IV ONE (18:22)
[2018-12-06] MEDS ORDERED: diphenhydrAMINE 25 MG CAP PO PRN (18:57)
[2018-12-06] MEDS ORDERED: ONDANSETRON 4 MG/2 ML VIAL IVP ONE (19:00)
--- NOTE | 2018-12-06 19:00 | GHP ---
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 Initially Thursday, she felt some low back pain which she attributed to shoveling some snow. Then yesterday morning she had headache that got p rogressively worse. Headaches are uncommon for her. She has also some urinary burning, but has a co ncomitant yeast infection. She has had some nausea but no vomiting, a stiff neck and some photophobi a. She does not typically get migraines. REVIEW OF SYSTEMS: Complete 10-point review of systems conducted negative except as noted in the HPI . PAST MEDICAL HISTORY: 1. Episode of hand infection with tenosynovitis requiring IV antibiotics and debridement. 2. Remote viral meningitis that presents as recurrent falling down. ALLERGIES: No known drug allergies. MEDICATIONS: Ibuprofen and Benadryl. SOCIAL HISTORY: She has a couple glasses of wine a night. She is a nonsmoker. Lives in [facility] ith her . FAMILY HISTORY: Reviewed and unremarkable. PHYSICAL EXAMINATION: VITAL SIGNS: Temp 37.5, but she did have a temp of 38.1 in the emergency depa rtment. Blood pressure 110/73, pulse 89, breathing 16 times a minute, 97% on 1 L. GENERAL: No acut e distress. Appears a little bit uncomfortable. HEENT: Sclerae anicteric. Oropharynx clear. Muco us membranes moist. NECK: Not supple. There is no lymphadenopathy. LUNGS: Clear to auscultation anterolaterally. HEART: S1, S2 without tachycardia. ABDOMEN: Soft, nontender, nondistended. LOWE R EXTREMITIES: Without edema. Calves nontender. SKIN: Without rash. NEUROLOGIC: Exam is nonfoca l. LABORATORY: White count 8, hematocrit 37, platelets are 276,000. Chem-7 is normal. CRP is less monica n 5. UA shows 3-5 red cells, no white cells. CSF shows 455 white cells with 86 red cells. There is 1% neutrophils, 85% lymphocytes, 14% macrophages. Glucose is low at 44. Protein is high at 156 ___ similar. Influenza A and B are negative. A noncontrast head CT shows no acute process. I discussed the case with Dr. Christ Sutton. ASSESSMENT AND PLAN: This is a 48-year-old female with likely viral meningitis. 1. Viral meningitis, started on acyclovir. 2. Query bacterial meningitis. The patient has a low glucose which is concerning for possible bacte rial meningitis. [facility]. This test s for 14 pathogens: Bacteria, E coli K1, H flu, listeria, Neisseria, strep agalactiae and strep pneu moniae viruses, CMV, enterovirus, HSV 1 and 2, HSV 6, human parechovirus and VZV and fungi cryptococc us. I do not have concern for cryptococcal meningitis in this immunocompetent patient but there was some concern she could have 1 of these less purulent bacteria. These results will likely be availabl e tomorrow though they may require some phone calls by the provider. 3. Urinary frequency. I suspect secondary to candidiasis as the patient has normal UA. DISPOSITION: Observation status. /[id number]/MODL
[2018-12-06] MEDS ORDERED: KETOROLAC 30 MG/1 ML SDV ONE (19:02)
[2018-12-06] MEDS: ACYCLOVIR 350 MG in D5W 100 ML IV SCH (21:20)
[2018-12-06] MEDS: IBUPROFEN 200 MG TAB PO PRN (21:51)
[2018-12-06] MEDS: oxyCODONE IR 5 MG TAB PO PRN (21:51)
[2018-12-07] MEDS: IBUPROFEN 200 MG TAB PO PRN ×2 (03:12→21:03)
[2018-12-07] MEDS: oxyCODONE IR 5 MG TAB PO PRN ×4 (03:12→21:02)
[2018-12-07] MEDS: ACYCLOVIR 350 MG in D5W 100 ML IV SCH (05:41)
[2018-12-07] MEDS: ONDANSETRON DISINTEGRATING 4 MG TAB PO PRN ×2 (05:44→11:38)
[2018-12-07 06:27] LABS: PLATELET COUNT 185 10^3/uL (150-400)
--- NOTE | 2018-12-07 09:08 | HOSPPROG ---
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 Pt continues to have pain, but overall feels a bit better today, less headache, no fevers. -ID consult requested re: DOT, ?isolation precautions -increase acyclovir to 10 mg/kg q8h pending further ID recs (nl renal function) -d/c ceftriaxone -pain control, supportive care Normocytic anemia - hgb 12 --> 9.8. Suspect some dilutional component -check iron studies Full code Dispo - change to inpt for ongoing management of viral meningitis Subjective: Pt feels a litle better. Headache improved, no significant fevers or chills. Still with some back and neck pain. Denies h/o oral or genital herpes lesions. Taking po well. Objective: Vital Signs Temp Pulse Resp BP Pulse Ox 37.5 C 82 16 110/68 94 12/07/18 05:00 12/07/18 05:00 12/07/18 05:00 12/07/18 05:00 12/07/18 05:00 Laboratory Results 12/07/18 05:08 12/06/18 12/07/18 12/08/18 05:59 05:59 05:59 Intake Total 550 940 Output Total 1 Balance 549 940 - Physical Exam Constitutional: no apparent distress Eyes: PERRL Ears, Nose, Mouth, Throat: moist mucous membranes Cardiovascular: regular rate and rhythym Respiratory: no respiratory distress, clear to auscultation Gastrointestinal: normoactive bowel sounds, soft, non-tender abdomen Skin: warm Musculoskeletal: full muscle strength Neurologic: AAOx3 Psychiatric: interacting appropriately ICD10 Worksheet Patient Problems: Problems Problem Status Onset Meningitis Acute Cat bite Acute Cellulitis of left hand Acute
[2018-12-07] MEDS: MULTIVITAMINS 1 EACH TAB PO SCH (09:09)
--- NOTE | 2018-12-07 09:51 | PDMN ---
Medical Necessity Medical necessity: MCG: M221 meningitis suspected or viral A-2 days: HSV type 2 meningitis: status changed to INPT 12/07 for ongoing med nec care- further monitoring and tx of meningitis - IV acyclovir,
--- NOTE | 2018-12-07 10:18 | ASMTCMCOM ---
CM Note CM Note Notes: Pt is a 48 yo F, lives with , Rhys, who is MDPOA. Pt presents with meningitis. No therapies ordered at this time. CM to follow. Plan: TBD Date Signed: 12/07/2018 10:18 AM Electronically Signed By:MAGUE Ceron
[2018-12-07] MEDS: D5W IV SCH ×2 (11:42→19:15)
[2018-12-07] MEDS: ACYCLOVIR IV SCH ×2 (11:42→19:15)
[2018-12-07 12:08] LABS: HIV TYPE 1 AND 2 NEGATIVE (NEGATIVE)
--- NOTE | 2018-12-07 15:42 | GCON ---
INFECTIOUS DISEASE CONSULTATION. DATE OF CONSULTATION: 12/07/2018 REASON FOR CONSULTATION: Viral meningitis. HISTORY OF PRESENT ILLNESS: This is a 48-year-old woman whom I previously have cared for for a left hand tenosynovitis following a cat bite with culture showing Streptococcus salivarius, who was in her usual state of health until approximately Thursday when she developed headache and neck pain. These symptoms progressed and she developed some low back pain. The degree of her headache increased and she presented to her primary care on December 06, who noted that she had meningismus and promptly referred her to the emergency room. The patient also describes a low-grade fever. She denies any focal weakness, recent travel or new sexual contact. She does describe some vaginal symptoms with feeling some vaginal itching consistent with vaginal yeast infection and has been started on [id number] vaginal creams. She does describe a past history of viral meningitis 15 years ago, but states that they never had a diagnosis, symptoms were not as severe, and they treated her empirically with antibiotics. PAST MEDICAL HISTORY: Hyperlipidemia and tenosynovitis of the right hand requiring debridement 11/10/2018, and 11/25/2018, with cultures showing Streptococcus salivarius. The patient received IV antibiotics through 2018. PAST SURGICAL HISTORY: I and D of the hand as above and . ALLERGIES: NKDA. MEDICATIONS: The patient received ceftriaxone overnight and IV acyclovir dose adjusted to 730 mg IV q.8h. Patient's weight is 73 kilos. She is also on Dilaudid, Zofran, oxycodone, and Phenergan as needed for comfort. SOCIAL HISTORY: Patient is . She has 2 children ages 15 and 17. 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 FAMILY HISTORY: Positive for breast cancer and hypertension and hypothyroidism. REVIEW OF SYSTEMS: A complete 10-point review of systems was performed and is negative except as mentioned in the HPI. PHYSICAL EXAM: VITAL SIGNS: Blood pressure 110/68, heart rate 82, respiratory rate 16, saturation 94% on room air, temperature 37.5, T-max is 38.1. GENERAL: This is a very pleasant articulate woman sitting up in bed. No acute distress. HEENT extraocular muscles were intact. No conjunctival lesions. Oropharynx moist mucous membranes. Excellent dentition. NECK: The patient did have mild meningismus. CARDIOVASCULAR: Regular rate and rhythm with a faint systolic murmur. CHEST: Clear to auscultation bilaterally. ABDOMEN: Soft, nontender. exam external exam showed scattered ulcerations at the posterior fornix. Otherwise within normal limits. No Gr. SKIN: No rashes. NEUROLOGIC: She was alert and oriented x4. Cranial nerves were intact. Motor was intact. Her mood and affect were appropriate. LABORATORY: Head CT was performed without evidence of intracranial abnormality. Lumbar puncture was performed with a CSF: white count of 455, 86 RBCs, 85% lymphocytes, 14% monocytes, glucose 44, and total protein 156. Sample was sent to [facility] for meningeal encephalitis panel and was positive for HSV 2. Gram stain of CSF was negative. Blood cultures 2 sets are pending. White count normal at 6.2, hematocrit 31, platelets of 185. Creatinine is 0.7. HIV antibody is negative. ASSESSMENT AND PLAN: This is a 48-year-old woman who presents with headache and neck stiffness and is found to have a lymphocytic meningitis with PCR positive for HSV 2 and corresponding vaginal ulcerations also consistent with HSV 2. Screening HIV is negative. Discussed the pathogenesis of HSV 2, vaginal ulcers, viral meningitis and therapy including risks and benefits of acyclovir and transition to Valtrex. Also discussed longstanding management of recurrent HSV genital lesions. Time was 80 minutes, with 50% time spent with education and counseling regarding the pathogenesis and treatment of HSV 2. We will continue to follow patient with likely discharge tomorrow on 1 g of Valtrex three times daily for an additional 10 days. Thank you for this consultation. /[id number]/MODL MTDD
[2018-12-08] MEDS: ACYCLOVIR IV SCH (03:31)
[2018-12-08] MEDS: D5W IV SCH (03:31)
[2018-12-08] MEDS: MULTIVITAMINS 1 EACH TAB PO SCH (08:16)
[2018-12-08] MEDS: IBUPROFEN 200 MG TAB PO PRN (08:17)
[2018-12-08] MEDS: oxyCODONE IR 5 MG TAB PO PRN (08:17)
--- NOTE | 2018-12-08 08:34 | PCMIDPN ---
Assessment/Plan: HSV-2 Meningitis: clinically much improved today --1 more week valtrex 1gm PO BID, I sent to her pharmacy; take 1 pill tonight --follow up w me next week, follow up appt in discharge tab --re-reviewed pathogenesis Objective: Vital Signs Temp Pulse Resp BP Pulse Ox 36.5 C 76 16 98/65 L 96 12/08/18 05:21 12/08/18 05:21 12/08/18 05:21 12/08/18 05:21 12/08/18 05:21 Laboratory Results 12/07/18 05:08 12/07/18 12/08/18 12/09/18 05:59 05:59 05:59 Intake Total 550 2867 Output Total 1 Balance 549 2867 C-Reactive Protein < 5.0 mg/L (<10.0) 12/06/18 13:15 ICD10 Worksheet Patient Problems: Problems Problem Status Onset Meningitis Acute Cat bite Acute Cellulitis of left hand Acute
[2018-12-08 09:28] VITALS: BP 118/69
--- NOTE | 2018-12-08 10:28 | ASMTLACE ---
SARIE Length of stay for Answers: 1 day current admission Acuity / Level of Answers: Yes Care: Did the patient have an inpatient admission? Comorbidities - select Answers: History of falls all that apply # of Emergency department Answers: 1-2 visits in the last 6 months Score: 8 Date Signed: 12/08/2018 10:27 AM Electronically Signed By:MAGUE Ceron
--- NOTE | 2018-12-08 10:35 | ASMTDCNOTE ---
Case Management Discharge Discharge Order Complete? Answers: Yes Patient to Obtain Answers: via Family Medications Transportation Arranged Answers: Family/Friends Discharge Comments Notes: Pt is being discharged independently. No CM needs identified. Family to transport and follow-up as indicated. Date Signed: 12/08/2018 10:34 AM Electronically Signed By:MAGUE Ceron
--- NOTE | 2018-12-08 20:56 | GDS ---
DISCHARGE DIAGNOSES: 1. Herpes simplex virus type 2 meningitis. 2. Normocytic anemia. CONSULTANTS: Fatuma French MD, infectious disease. HISTORY: For details, please see the History and Physical dated December 06, 2018. In brief, the rob grande is a 48-year-old female who presented to the emergency department with a headache, back pain, an d malaise. A head CT in the ED was negative. She underwent lumbar puncture, which was suspicious fo r a viral meningitis. She was admitted to the hospital for further management. HOSPITAL COURSE: Patient was admitted to the medical/surgical unit. She was empirically started on both acyclovir and ceftriaxone. Her cerebrospinal fluid revealed 411 white cells, 86 red cells. Glu cose was low at 44, and protein was 156. 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 Her ceftriaxone was discontinued. She was continued on IV acyclovir and transitioned to p.o. Valtrex at discharge. Further history per the Infectious Disease consult revea led that she does indeed have a history of genital lesions. Her symptoms significantly improved, and she wished to be discharged home with close followup with Infectious Disease. DISPOSITION: Patient was discharged home in stable condition. FOLLOWUP: 1. Dr. Fatuma French, December 14 at [address] Thelma Parker, primary care. DISCHARGE MEDICATIONS: Please see [facility] completed outpatient medication list. New medications on discharge include: 1. Valtrex 1 g p.o. b.i.d. #14 no refills. She will be considered for ongoing suppressive therapy a t her followup appointment. 2. Tylenol 650 p.o. q.4 hours p.r.n. 3. Oxycodone 5-10 mg p.o. q.3 hours p.r.n. #10 no refills. 4. Phenergan 12.5 mg p.o. q.6 hours p.r.n. #10 no refills. 5. She will continue all other outpatient medications as previously prescribed. /[id number]/MODL
== END 2018-12-08 11:34 | disposition home or self-care (01) | DRG 76 ==
LOC: F1N 21:01
PROVIDERS: ADMIT Internal Medicine; ATTEND Internal Medicine
PROC: 009U3ZX Drainage of Spinal Canal, Percutaneous Approach, Diagnostic (ICD-10-PCS; principal; 2018-12-06)
DX: B00.3 Herpesviral meningitis (principal); A60.04 Herpesviral vulvovaginitis; E78.5 Hyperlipidemia, unspecified; D64.9 Anemia, unspecified; Z87.828 Personal history of other (healed) physical injury and trauma
CPT/HCPCS: 96365; G0378; J0133; J0696; J1170; J1885; J2405; J2550; J3010